=== PATIENT | male | born 1990 | race Caucasian/White ===

== ENCOUNTER 2019-03-08 07:12 | Inpatient (IN) ==
[2019-03-08] MEDS ORDERED: *HR* LORazepam 2 MG/ML VIAL IM ONE (07:19)
[2019-03-08] MEDS ORDERED: 0.9 % Sodium Chloride 1,000 ML IVC ONE ×2 (07:19→15:20)
[2019-03-08] MEDS ORDERED: *HR* LORazepam 2 MG/ML VIAL IVP ONE (07:29)
--- NOTE | 2019-03-08 07:39 | Emergency Department Note ---
Disposition Clinical Impression: Suicidal ideation, Drug ingestion, Hypokalemia, First degree atrioventricular block Disposition: Admitted As Inpatient Condition: Serious Time of Disposition: 14:04 Psych HPI - General Stated Complaint: SI Time Seen by Provider: 03/08/19 07:14 Nursing Notes Reviewed: Yes Vital Signs Reviewed: Yes - History of Present Illness HPI Narrative: 28 yo male presents from home via EMS for evaluation of SI with ingestion. Between the hours of 5am and 6am patient consumed 92 tablets of Unisom as well as 4 cans of beer. Patient's girlfriend called deputies who subsequently called EMS. Per EMS, deputies found 3 unisom bottles. They were empty save for 2 tablets remaining. Patient states he took them all at once. He is not sure which formulation; no bottles brought by EMS. No prior suicide attempts. No daily medications. No allergies. ROS: Limited as patient is agitated, unable to sit still. Has difficulty answering basic questions because of this. Pos: intentional ingestion. "Feels like crap." Neg: VIRGEN, chest pain, palpitations, abdominal pain, hallucinations, blurry vision - Related Data Home Medications Medication Instructions Recorded Confirmed No Known Home Drugs 03/08/19 03/08/19 Allergies Allergy/AdvReac Type Severity Reaction Status Date / Time No Known Allergies Allergy Verified 03/21/18 02:34 All systems ED: reviewed and negative except as stated. Review of Systems: As Per HPI Past Medical History - Past Medical History Medical history: Reports: no medical history Psychiatric history: Reports: no psych history - Social History Smoking Status: Never smoker Smokeless Tobacco Status: No Alcohol use: Reports: rarely Drug use: Reports: none Physical Exam Vital Signs Reviewed General: Patient is alert, oriented, and in acute distress - he is wide-eyed, dry mouth, unable to sit still. Head: atraumatic, normocephalic Eye: normal appearance, PERRL, EOMI, no scleral icterus, no conjunctival injection ENT: mucous membranes dry, normal external ear exam Neck: normal inspection, trachea midline, full ROM Chest: normal inspection, symmetric chest rise Respiratory: Good respiratory effort. Bilateral breath sounds are clear without wheezing, crackles, or rhonchi. Cardiovascular: Tachycardic rate and regular rhythm. No clicks, rubs, gallops, or murmors. Normal heart sounds. Abdomen: Bowel sounds present normoactive. Abdomen is soft, nondistended, and nontender. No guarding or rebound. No organomegaly noted. Musculoskeletal: Spontaneously moving all extremities. Skin: warm, dry, intact. Neuro: GCS 15. No focal neurologic deficits observed. Course Course Narrative: 07:36 Poison control Some formulation with diphenhydramine others with doxalymine, some with acetaminpphen. Patient us unsure which formulation he took. Looking at anticholinergic +/- acetaminphen. Peak effects within 4 hours. Titrate benzos. Watch for HTN, agitation, hallucination. Patient's speech is tangential. He is protecting his airway. He appears to beginning to enter some agitation phase of the overdose; he agrees to not harm the staff and allow us to help him. EKG #1 EKG dated 03/08/2019 and 07:27 interpreted as sinus tachycardia with a rate of 116. For sure AV block with VT 219. QRS 111. QTC 341. Left axis. LVH. Nonspecific ST-T changes. No previous EKG for comparison. EKG #2 EKG dated 03/08/2019 at 10:24 interpreted as sinus tachycardia with a rate of 131. VT 98, QRS 108, QTc 559. No ST-T changes. Agitation was well control within the ED: 2mg Ativan x 3 followed by precedex drip. Patient given 1amp bicarb secondary to QTc 559. Discussed the patient with the admitting hospitalist, Dr. Jo. She agrees to accept the patient to the step-down unit. Vital Signs Temperature 98.7 F 03/08/19 07:15 Pulse Rate 115 03/08/19 07:15 Respiratory Rate 20 03/08/19 07:15 Blood Pressure 145/99 03/08/19 07:15 O2 Sat by Pulse Oximetry 99 03/08/19 07:15 Temperature 98.7 F 03/08/19 07:15 Pulse Rate 140 03/08/19 10:49 Respiratory Rate 18 03/08/19 13:54 Blood Pressure 138/80 03/08/19 13:54 O2 Sat by Pulse Oximetry 98 03/08/19 10:49 Oxygen Delivery Oxygen Delivery Room Air Psych - Lab Data Result diagrams: 03/08/19 07:30 03/08/19 12:14 Lab Results 03/08/19 03/08/19 03/08/19 Range/Units 07:30 07:30 10:22 WBC 8.6 (4.3-11.1) K/mcL RBC 5.31 (4.19-5.50) M/mcL Hgb 16.4 (12.9-16.9) g/dL Hct 46.2 (37.5-50.1) % MCV 87.0 (83.0-100.0) fL MCH 30.9 (28.0-33.3) pg MCHC 35.5 (31.6-35.5) g/dL RDW 12.5 (11.5-14.5) % Plt Count 310 (140-400) K/mcL MPV 10.3 (9.4-12.4) fL Immature Gran % 0.3 (0-4) % Seg Neutrophils % 63.6 % Lymphocytes % 23.0 % Monocytes % 11.9 % Eosinophils % 1.0 % Basophils % 0.2 % Neutrophils # 5.5 (1.6-8.9) K/mcL Lymphocytes # 2.0 (0.6-4.6) K/mcL Monocytes # 1.0 (0.0-1.3) K/mcL Eosinophils # 0.1 (0.0-0.6) K/mcL Basophils # 0.0 (0.0-0.2) K/mcL Sodium 138 (136-145) mEq/L Potassium 2.5 L* (3.5-5.1) mEq/L Chloride 100 (98-107) mEq/L Carbon Dioxide 19 L (23-29) mEq/L BUN 13 (6-20) mg/dL Creatinine 1.02 (0.70-1.30) mg/dL Est GFR ( Amer) > 60 (> 60) Est GFR (Non-Af Amer) > 60 (> 60) BUN/Creatinine Ratio 13 (6-26) Glucose 164 H (70-105) mg/dL Calculated Osmolality 290 (280-300) Calcium 9.9 (8.6-10.3) mg/dL Magnesium 1.5 L (1.6-2.6) mg/dL Total Bilirubin 3.2 H (0.3-1.0) mg/dL Direct Bilirubin 0.4 H (0.0-0.2) mg/dL Indirect Bilirubin 2.8 H (0.0-1.2) mg/dL AST 81 H (13-39) Units/L ALT 165 H (7-52) Units/L Alkaline Phosphatase 91 (34-104) Units/L Serum Total Protein 7.5 (6.4-8.9) g/dL Albumin 4.7 (3.5-5.7) g/dL Globulin 2.8 (2.4-3.5) g/dL Albumin/Globulin Ratio 1.7 (1.1-2.2) Urine Color Dark Yellow (Yellow) Urine Clarity Clear (Clear) Urine pH 5.5 (5.0-8.0) pH Units Ur Specific [place] 1.023 (1.010-1.025) Urine Protein Negative (Neg-Trace) mg/dL Urine Glucose (UA) Normal (Normal) mg/dL Urine Ketones 15 H (Negative) mg/dL Urine Blood Negative (Negative) Urine Nitrite Negative (Negative) Urine Bilirubin Negative (Negative) Urine Urobilinogen Normal (Normal) mg/dL Ur Leukocyte Esterase Trace H (Negative) Urine Microscopic RBC 0-3 (0-3) per hpf Urine Microscopic WBC 0-3 (0-3) per hpf Ur Squamous Epith Cells Many H (None-Few) per lpf Urine Bacteria None Seen (None-Few) per hpf Hyaline Casts None Seen (None-Few) per lpf Salicylates < 2.5 L (15.0-30.0) mg/dL Urine Opiates Screen (Foxmwy=383) ng/mL Acetaminophen < 10 L (10-20) mcg/mL Ur Barbiturates Screen (Mdsuef=997) ng/mL Ur Phencyclidine Scrn (Cutoff=25) ng/mL Ur Amphetamines Screen (Tuuubs=3543) ng/mL U Benzodiazepines Scrn (Kldhko=217) ng/mL Urine Cocaine Screen (Cutoff= 300) ng/mL U Marijuana (THC) Screen (Cutoff = 50) ng/mL Ur Drug Screen Interp Ethyl Alcohol < 10 (Less than 10) mg/dL 03/08/19 03/08/19 Range/Units 10:22 12:14 WBC (4.3-11.1) K/mcL RBC (4.19-5.50) M/mcL Hgb (12.9-16.9) g/dL Hct (37.5-50.1) % MCV (83.0-100.0) fL MCH (28.0-33.3) pg MCHC (31.6-35.5) g/dL RDW (11.5-14.5) % Plt Count (140-400) K/mcL MPV (9.4-12.4) fL Immature Gran % (0-4) % Seg Neutrophils % % Lymphocytes % % Monocytes % % Eosinophils % % Basophils % % Neutrophils # (1.6-8.9) K/mcL Lymphocytes # (0.6-4.6) K/mcL Monocytes # (0.0-1.3) K/mcL Eosinophils # (0.0-0.6) K/mcL Basophils # (0.0-0.2) K/mcL Sodium 140 (136-145) mEq/L Potassium 3.1 L (3.5-5.1) mEq/L Chloride 103 (98-107) mEq/L Carbon Dioxide 22 L (23-29) mEq/L BUN 10 (6-20) mg/dL Creatinine 0.89 (0.70-1.30) mg/dL Est GFR ( Amer) > 60 (> 60) Est GFR (Non-Af Amer) > 60 (> 60) BUN/Creatinine Ratio 11 (6-26) Glucose 84 (70-105) mg/dL Calculated Osmolality 288 (280-300) Calcium 9.4 (8.6-10.3) mg/dL Magnesium 1.9 (1.6-2.6) mg/dL Total Bilirubin (0.3-1.0) mg/dL Direct Bilirubin (0.0-0.2) mg/dL Indirect Bilirubin (0.0-1.2) mg/dL AST (13-39) Units/L ALT (7-52) Units/L Alkaline Phosphatase (34-104) Units/L Serum Total Protein (6.4-8.9) g/dL Albumin (3.5-5.7) g/dL Globulin (2.4-3.5) g/dL Albumin/Globulin Ratio (1.1-2.2) Urine Color (Yellow) Urine Clarity (Clear) Urine pH (5.0-8.0) pH Units Ur Specific [place] (1.010-1.025) Urine Protein (Neg-Trace) mg/dL Urine Glucose (UA) (Normal) mg/dL Urine Ketones (Negative) mg/dL Urine Blood (Negative) Urine Nitrite (Negative) Urine Bilirubin (Negative) Urine Urobilinogen (Normal) mg/dL Ur Leukocyte Esterase (Negative) Urine Microscopic RBC (0-3) per hpf Urine Microscopic WBC (0-3) per hpf Ur Squamous Epith Cells (None-Few) per lpf Urine Bacteria (None-Few) per hpf Hyaline Casts (None-Few) per lpf Salicylates (15.0-30.0) mg/dL Urine Opiates Screen Positive H (Sasodq=702) ng/mL Acetaminophen (10-20) mcg/mL Ur Barbiturates Screen Negative (Hpczkp=833) ng/mL Ur Phencyclidine Scrn Negative (Cutoff=25) ng/mL Ur Amphetamines Screen Negative (Qmfjpa=6679) ng/mL U Benzodiazepines Scrn Negative (Nkgdvq=227) ng/mL Urine Cocaine Screen Negative (Cutoff= 300) ng/mL U Marijuana (THC) Screen Negative (Cutoff = 50) ng/mL Ur Drug Screen Interp See Below Ethyl Alcohol (Less than 10) mg/dL Psychiatric Medical Clearance - Medical Clearance Checklist Medical History: No Social History Section defined Current Vitals: Last Vital Signs Temp 98.7 F 03/08/19 07:15 Pulse 140 03/08/19 10:49 Resp 18 03/08/19 13:54 BP 138/80 03/08/19 13:54 Pulse Ox 98 03/08/19 10:49 Psychiatric Lab Panel: Drug Levels and Toxicity 03/08/19 03/08/19 07:30 10:22 Urine Opiates Screen Positive H Acetaminophen < 10 L Ur Barbiturates Screen Negative Ur Phencyclidine Scrn Negative Ur Amphetamines Screen Negative U Benzodiazepines Scrn Negative Urine Cocaine Screen Negative U Marijuana (THC) Screen Negative Ethyl Alcohol < 10 Abnormal Labs: Abnormal lab results Potassium 3.1 mEq/L (3.5-5.1) L 03/08/19 12:14 Carbon Dioxide 22 mEq/L (23-29) L 03/08/19 12:14 Glucose 164 mg/dL (70-105) H 03/08/19 07:30 Magnesium 1.5 mg/dL (1.6-2.6) L 03/08/19 07:30 3.2 mg/dL (0.3-1.0) H 03/08/19 07:30 0.4 mg/dL (0.0-0.2) H 03/08/19 07:30 2.8 mg/dL (0.0-1.2) H 03/08/19 07:30 AST 81 Units/L (13-39) H 03/08/19 07:30 ALT 165 Units/L (7-52) H 03/08/19 07:30 15 mg/dL (Negative) H 03/08/19 10:22 Ur Leukocyte Esterase Trace (Negative) H 03/08/19 10:22 Ur Squamous Epith Cells Many per lpf (None-Few) H 03/08/19 10:22 Salicylates < 2.5 mg/dL (15.0-30.0) L 03/08/19 07:30 Positive ng/mL (Gyvfrh=993) H 03/08/19 10:22 Acetaminophen < 10 mcg/mL (10-20) L 03/08/19 07:30 Statement of Medical Clearance: I have evaluated the patient, reviewed diagnostic information, and certify that the patient's medical condition is sufficiently stable that transfer to the psychiatric unit does not pose a significant risk of deterioration. Attestation Statement - Attestation Attestation: I, Luca Khanna DO, examined this patient [id number] and my medical decision-making was reviewed with Dr. Jacoby Phelps, Resident Physician. I agree with the documented findings, disposition and treatment plan as described except to the extent set forth below. I personally supervised and was present for the saleem/critical portions of the procedures completed by the resident documented below. Please see my progress notes for details.
[2019-03-08 07:45] LABS: Basophils % 0.2 %; Eosinophils # 0.1 K/mcL (0.0-0.6); Hematocrit 46.2 % (37.5-50.1); Hemoglobin 16.4 g/dL (12.9-16.9); Immature Granulocytes % 0.3 % (0-4); Mean Corpuscular HGB Conc 35.5 g/dL (31.6-35.5); Mean Corpuscular Hemoglobin 30.9 pg (28.0-33.3); Mean Platelet Volume 10.3 fL (9.4-12.4); Monocytes % 11.9 %; Neutrophils # 5.5 K/mcL (1.6-8.9); Platelet Count 310 K/mcL (140-400); Red Blood Count 5.31 M/mcL (4.19-5.50); Red Cell Distribution Width 12.5 % (11.5-14.5); Segmented Neutrophils % 63.6 %
--- NOTE | 2019-03-08 07:56 | Emergency Department Note ---
Disposition Clinical Impression: Suicidal ideation, Drug ingestion, Hypokalemia, First degree atrioventricular block Disposition: Admitted As Inpatient Condition: Serious Time of Disposition: 13:30 General Adult HPI - General Chief complaint: ED Psychiatric Symptoms Stated complaint: SI Time Seen by Provider: 03/08/19 07:14 Source: patient Limitations: no limitations - History of Present Illness Pain Scale: 0 - Related Data Home Medications Medication Instructions Recorded Confirmed No Known Home Drugs 03/08/19 03/08/19 Allergies Allergy/AdvReac Type Severity Reaction Status Date / Time No Known Allergies Allergy Verified 03/21/18 02:34 Past Medical History - Past Medical History Medical history: Reports: no medical history Psychiatric history: Reports: no psych history - Social History Smoking Status: Never smoker Smokeless Tobacco Status: No Alcohol use: Reports: rarely Drug use: Reports: none Physical Exam - General Limitations: no limitations General appearance: alert, anxious Course Vital Signs Temperature 98.7 F 03/08/19 07:15 Pulse Rate 115 03/08/19 07:15 Respiratory Rate 20 03/08/19 07:15 Blood Pressure 145/99 03/08/19 07:15 O2 Sat by Pulse Oximetry 99 03/08/19 07:15 Temperature 98.7 F 03/08/19 07:15 Pulse Rate 140 03/08/19 10:49 Respiratory Rate 18 03/08/19 13:54 Blood Pressure 138/80 03/08/19 13:54 O2 Sat by Pulse Oximetry 98 03/08/19 10:49 Oxygen Delivery Oxygen Delivery Room Air Medical Decision Making - Lab Data Result diagrams: 03/08/19 07:30 03/08/19 12:14 Lab Results 03/08/19 03/08/19 03/08/19 Range/Units 07:30 07:30 10:22 WBC 8.6 (4.3-11.1) K/mcL RBC 5.31 (4.19-5.50) M/mcL Hgb 16.4 (12.9-16.9) g/dL Hct 46.2 (37.5-50.1) % MCV 87.0 (83.0-100.0) fL MCH 30.9 (28.0-33.3) pg MCHC 35.5 (31.6-35.5) g/dL RDW 12.5 (11.5-14.5) % Plt Count 310 (140-400) K/mcL MPV 10.3 (9.4-12.4) fL Immature Gran % 0.3 (0-4) % Seg Neutrophils % 63.6 % Lymphocytes % 23.0 % Monocytes % 11.9 % Eosinophils % 1.0 % Basophils % 0.2 % Neutrophils # 5.5 (1.6-8.9) K/mcL Lymphocytes # 2.0 (0.6-4.6) K/mcL Monocytes # 1.0 (0.0-1.3) K/mcL Eosinophils # 0.1 (0.0-0.6) K/mcL Basophils # 0.0 (0.0-0.2) K/mcL Sodium 138 (136-145) mEq/L Potassium 2.5 L* (3.5-5.1) mEq/L Chloride 100 (98-107) mEq/L Carbon Dioxide 19 L (23-29) mEq/L BUN 13 (6-20) mg/dL Creatinine 1.02 (0.70-1.30) mg/dL Est GFR ( Amer) > 60 (> 60) Est GFR (Non-Af Amer) > 60 (> 60) BUN/Creatinine Ratio 13 (6-26) Glucose 164 H (70-105) mg/dL Calculated Osmolality 290 (280-300) Calcium 9.9 (8.6-10.3) mg/dL Magnesium 1.5 L (1.6-2.6) mg/dL Total Bilirubin 3.2 H (0.3-1.0) mg/dL Direct Bilirubin 0.4 H (0.0-0.2) mg/dL Indirect Bilirubin 2.8 H (0.0-1.2) mg/dL AST 81 H (13-39) Units/L ALT 165 H (7-52) Units/L Alkaline Phosphatase 91 (34-104) Units/L Serum Total Protein 7.5 (6.4-8.9) g/dL Albumin 4.7 (3.5-5.7) g/dL Globulin 2.8 (2.4-3.5) g/dL Albumin/Globulin Ratio 1.7 (1.1-2.2) Urine Color Dark Yellow (Yellow) Urine Clarity Clear (Clear) Urine pH 5.5 (5.0-8.0) pH Units Ur Specific [place] 1.023 (1.010-1.025) Urine Protein Negative (Neg-Trace) mg/dL Urine Glucose (UA) Normal (Normal) mg/dL Urine Ketones 15 H (Negative) mg/dL Urine Blood Negative (Negative) Urine Nitrite Negative (Negative) Urine Bilirubin Negative (Negative) Urine Urobilinogen Normal (Normal) mg/dL Ur Leukocyte Esterase Trace H (Negative) Urine Microscopic RBC 0-3 (0-3) per hpf Urine Microscopic WBC 0-3 (0-3) per hpf Ur Squamous Epith Cells Many H (None-Few) per lpf Urine Bacteria None Seen (None-Few) per hpf Hyaline Casts None Seen (None-Few) per lpf Salicylates < 2.5 L (15.0-30.0) mg/dL Urine Opiates Screen (Jxnsjo=966) ng/mL Acetaminophen < 10 L (10-20) mcg/mL Ur Barbiturates Screen (Xeyara=326) ng/mL Ur Phencyclidine Scrn (Cutoff=25) ng/mL Ur Amphetamines Screen (Buprso=1371) ng/mL U Benzodiazepines Scrn (Izutcq=206) ng/mL Urine Cocaine Screen (Cutoff= 300) ng/mL U Marijuana (THC) Screen (Cutoff = 50) ng/mL Ur Drug Screen Interp Ethyl Alcohol < 10 (Less than 10) mg/dL 03/08/19 03/08/19 Range/Units 10:22 12:14 WBC (4.3-11.1) K/mcL RBC (4.19-5.50) M/mcL Hgb (12.9-16.9) g/dL Hct (37.5-50.1) % MCV (83.0-100.0) fL MCH (28.0-33.3) pg MCHC (31.6-35.5) g/dL RDW (11.5-14.5) % Plt Count (140-400) K/mcL MPV (9.4-12.4) fL Immature Gran % (0-4) % Seg Neutrophils % % Lymphocytes % % Monocytes % % Eosinophils % % Basophils % % Neutrophils # (1.6-8.9) K/mcL Lymphocytes # (0.6-4.6) K/mcL Monocytes # (0.0-1.3) K/mcL Eosinophils # (0.0-0.6) K/mcL Basophils # (0.0-0.2) K/mcL Sodium 140 (136-145) mEq/L Potassium 3.1 L (3.5-5.1) mEq/L Chloride 103 (98-107) mEq/L Carbon Dioxide 22 L (23-29) mEq/L BUN 10 (6-20) mg/dL Creatinine 0.89 (0.70-1.30) mg/dL Est GFR ( Amer) > 60 (> 60) Est GFR (Non-Af Amer) > 60 (> 60) BUN/Creatinine Ratio 11 (6-26) Glucose 84 (70-105) mg/dL Calculated Osmolality 288 (280-300) Calcium 9.4 (8.6-10.3) mg/dL Magnesium 1.9 (1.6-2.6) mg/dL Total Bilirubin (0.3-1.0) mg/dL Direct Bilirubin (0.0-0.2) mg/dL Indirect Bilirubin (0.0-1.2) mg/dL AST (13-39) Units/L ALT (7-52) Units/L Alkaline Phosphatase (34-104) Units/L Serum Total Protein (6.4-8.9) g/dL Albumin (3.5-5.7) g/dL Globulin (2.4-3.5) g/dL Albumin/Globulin Ratio (1.1-2.2) Urine Color (Yellow) Urine Clarity (Clear) Urine pH (5.0-8.0) pH Units Ur Specific [place] (1.010-1.025) Urine Protein (Neg-Trace) mg/dL Urine Glucose (UA) (Normal) mg/dL Urine Ketones (Negative) mg/dL Urine Blood (Negative) Urine Nitrite (Negative) Urine Bilirubin (Negative) Urine Urobilinogen (Normal) mg/dL Ur Leukocyte Esterase (Negative) Urine Microscopic RBC (0-3) per hpf Urine Microscopic WBC (0-3) per hpf Ur Squamous Epith Cells (None-Few) per lpf Urine Bacteria (None-Few) per hpf Hyaline Casts (None-Few) per lpf Salicylates (15.0-30.0) mg/dL Urine Opiates Screen Positive H (Zerefh=116) ng/mL Acetaminophen (10-20) mcg/mL Ur Barbiturates Screen Negative (Xuoopb=978) ng/mL Ur Phencyclidine Scrn Negative (Cutoff=25) ng/mL Ur Amphetamines Screen Negative (Gqbing=6540) ng/mL U Benzodiazepines Scrn Negative (Cmbwnh=166) ng/mL Urine Cocaine Screen Negative (Cutoff= 300) ng/mL U Marijuana (THC) Screen Negative (Cutoff = 50) ng/mL Ur Drug Screen Interp See Below Ethyl Alcohol (Less than 10) mg/dL Critical Care Time Critical Care Time: Yes Total Critical Care Time: 45 Attestation: Critical care performed: Time is exclusive of separately billable procedures. Time includes: direct patient care, patient reassessment, coordination of patient care, interpretation of data (laboratory data, radiology data, and respiratory data), review of patient's medical records, medical consultation and documentation of patient care. Procedures included in critical care time: Procedures excluded from critical care time: Attestation Statement - Attestation Attestation: I, Luca Khanna DO, examined this patient [id number] and my medical decision-making was reviewed with Dr. Jacoby Phelps, Resident Physician. I agree with the documented findings, disposition and treatment plan as described except to the extent set forth below. I personally supervised and was present for the saleem/critical portions of the procedures completed by the resident documented below. Please see my progress notes for details. 28-year-old male presents emergency room after ingesting 3 bottles a Unasom as well as several cans of beer. Patient did this and attempt to kill himself secondary to relationship issues last night where his girlfriend left the house and took their children. Patient denies any other symptoms. He is slightly confused or tangential in conversation on arrival. All the initial complaints are subjected based on the patient's mental status at this time. He does not show any acute signs of hemodynamic instability. He is able to protect his airway appropriately. There is no immediate signs of anticholinergic toxidrome at this point. Patient will be symptomatically evaluated with EKG chest x-ray labs including electrolytes and drugs of abuse. Poison Control Center will be contacted for the recommendations for symptomatic control at this time we will continue to monitor the patient. Estimated 90+ pills of the medication were ingested. Patient will be monitored until clearance is completed and then medical admission will be established and psychiatric consultation. Patient is otherwise stable at this time. Physical exam shows a well-developed appropriate appearing male that does appear to be presenting with slightly tacky skin. His pupils are reactive. He does have difficulty with focusing or we are evaluating. His head is otherwise normal with no signs of trauma. His mucous membranes are slightly dry and tacky. His oropharynx is patent. Lungs are clear heart is regular. Abdomen is soft. Extremities are normal. No signs of nystagmus or clonus at this time. Disposition to be completed once workup has been established. See detailed documentation the physical exam, medical intervention, medical decision-making and disposition the resident physician's note. At this time no critical care applied the patient's treatment course. 1300 Patient is a medical clearance completed. Is required several doses of Ativan will here in the emergency department. Patient was placed on Precedex for the agitation. Repeat EKG shows potential prolongation of the QT is a bicarbonate drip will be started. Patient is otherwise hemodynamically stable. Hospitalist Dr. li reviewed the case. No other recommendations or concerns noted this time. Poison Control Center to been contacted. Disposition will be admission. Patient does have potential critical illness secondary to the large volume ingestion of medications.
[2019-03-08 08:06] LABS: Acetaminophen < 10 mcg/mL (10-20); Alanine Aminotransferase 165 Units/L (7-52); Albumin 4.7 g/dL (3.5-5.7); Albumin/Globulin Ratio 1.7 (1.1-2.2); Alkaline Phosphatase 91 Units/L (34-104); Aspartate Amino Transferase 81 Units/L (13-39); BUN/Creatinine Ratio 13 (6-26); Bilirubin,Direct 0.4 mg/dL (0.0-0.2); Bilirubin,Indirect 2.8 mg/dL (0.0-1.2); Bilirubin,Total 3.2 mg/dL (0.3-1.0); Blood Urea Nitrogen 13 mg/dL (6-20); Calcium 9.9 mg/dL (8.6-10.3); Carbon Dioxide 19 mEq/L (23-29); Chloride 100 mEq/L (98-107); Ethanol < 10 mg/dL (Less than 10); Globulin 2.8 g/dL (2.4-3.5); Glucose 164 mg/dL (70-105); Osmolality,Calculated 290 (280-300); Potassium 2.5 mEq/L (3.5-5.1); Salicylate < 2.5 mg/dL (15.0-30.0); Sodium 138 mEq/L (136-145); Total Protein 7.5 g/dL (6.4-8.9); eGFR For Non-African Americans > 60 (> 60)
[2019-03-08] MEDS ORDERED: Potassium Phosphate 44 MEQ in 0.9 % Sodium Chloride 250 ML IVPB ONE (08:09)
[2019-03-08 08:25] LABS: Magnesium 1.5 mg/dL (1.6-2.6)
[2019-03-08] MEDS ORDERED: *HR* LORazepam 2 MG/ML VIAL IVP PRN ×2 (09:13→15:20)
[2019-03-08] MEDS ORDERED: *HR* LORazepam 2 MG/ML VIAL IVP STA (09:13)
[2019-03-08 10:31] LABS: Bilirubin,Urine Negative (Negative); Blood,Urine Negative (Negative); Clarity,Urine Clear (Clear); Color,Urine Dark Yellow (Yellow); Glucose,Urine (UA) Normal (Normal); Ketones,Urine 15 mg/dL (Negative); Leukocyte Esterase,Urine Trace (Negative); Nitrite,Urine Negative (Negative); PH,Urine 5.5 pH Units (5.0-8.0); Protein,Urine Negative (Neg-Trace); Specific Gravity,Urine 1.023 (1.010-1.025); Urobilinogen,Urine Normal (Normal)
[2019-03-08 10:34] LABS: Bacteria,Urine None Seen per hpf (None-Few); Hyaline Casts,Urine None Seen per lpf (None-Few); RBC,Urine 0-3 per hpf (0-3); Squamous Epithelial Cell,Urine Many per lpf (None-Few); WBC,Urine 0-3 per hpf (0-3)
[2019-03-08 10:43] LABS: Amphetamine Screen,Urine Negative ng/mL (Cutoff=1000); Barbiturate Screen,Urine Negative ng/mL (Cutoff=200); Benzodiazepines Screen,Urine Negative ng/mL (Cutoff=200); Cannabinoid Screen,Urine Negative ng/mL (Cutoff = 50); Cocaine Screen,Urine Negative ng/mL (Cutoff= 300); Opiate Screen,Urine Positive ng/mL (Cutoff=300); Phencyclidine Screen,Urine Negative ng/mL (Cutoff=25)
[2019-03-08] MEDS ORDERED: Dexmedetomidine HCl 400 MCG/100 ML MLS IVC SCH (11:30)
[2019-03-08 12:42] LABS: BUN/Creatinine Ratio 11 (6-26); Blood Urea Nitrogen 10 mg/dL (6-20); Calcium 9.4 mg/dL (8.6-10.3); Carbon Dioxide 22 mEq/L (23-29); Chloride 103 mEq/L (98-107); Glucose 84 mg/dL (70-105); Magnesium 1.9 mg/dL (1.6-2.6); Osmolality,Calculated 288 (280-300); Potassium 3.1 mEq/L (3.5-5.1); Sodium 140 mEq/L (136-145); eGFR For Non-African Americans > 60 (> 60)
[2019-03-08] MEDS ORDERED: Sodium Bicarbonate 50 MEQ/50 ML VIAL IVP ONE (14:02)
--- NOTE | 2019-03-08 14:52 | Internal Med History&Physical ---
<Mavis Eugene - Last Filed: 03/08/19 16:36> Date of Encounter: 03/08/19 Time of Encounter: 14:51 Internal Medicine - H&P: HPI Chief complaint: SI and toxic ingestion Admitted From: Emergency Dept Plans for Post Hospital Care: Transfer Psych Facility (1A) History of present illness: Mr. Grier is a 28 year old male with no known PMH who presents by EMS for evaluation of suicidal ideation with toxic ingestion of OTC anti-histamine and alcohol following recent stressor in which his girlfriend left the home with their children. Much of the history is gathered from chart review, the patient is an unreliable historian at this time d/t toxic ingestion. According to ED notes, patient ingested 92 tablets of Unisom and drank 4 cans of beer early this morning. On arrival to the ED, Poison Control was contacted and the patient was found to have temp 98.3 F, HR 115, RR 20, and SBP 145-160 / DBP 80-110. Laboratory evaluation shows K 2.5, bicarb 19, Mg 1.5, opiate positive UDS, with leukocytes and ketones on UA. Salicylate, APAP, and EtOH levels were not elevated on UDS. Initial EKG reported as sinus tachycardia (HR 115) with 1st degree AV block (AK 219) and QTc 341. Repeat EKG demonstrated sinus tachycardia (HR 131), AK 98, and QTc 559. Nonspecific ST-T changes seen on both EKGs. Patient treated with 40 mEq K for hypokalemia and 1 amp bicarb for prolonged QTc. During his ED course, he was reported to be getting more agitated and received a few doses of Ativan before being started on a Precedex drip. He was admitted to the hospitalist service for further evaluation and monitoring of his toxic ingestion. When I entered the room, patient was in no acute distress. He appeared to be slightly confused and his speech was tangential. States he intended to take the Unisom, but was taking it because he couldn't sleep. Denies current suicidal or homicidal ideation. Unclear whether or not he'd experienced suicidal ideation prior to this episode. He is oriented to place and time, but was unable correctly name the current air crew officer after having answered Teena Case and Neda Bee. He denies fevers, chest pain, heart palpitations, heart racing, difficulty breathing, blurred vision, nausea, difficulty urinating, or tactile/auditory/visual hallucinations at time of my evaluation. Past Med Surg Social Fam HX - Past Medical History Medical history: no medical history Psychiatric history: no psych history - Social History Smoking Status: Never smoker Smokeless Tobacco Status: No Alcohol use: rarely Drug use: none Internal Medicine - H&P: Meds No Known Home Drugs 03/08/19 [History] Allergy/AdvReac Type Severity Reaction Status Date / Time No Known Allergies Allergy Verified 03/21/18 02:34 ROS unobtainable: due to mental status All Systems PM: A 10-system review of systems was performed and is negative for pertinent findi ngs except as documented above in the HPI. - Constitutional Vitals: Temp Pulse Resp BP Pulse Ox 98.7 F 140 18 138/80 98 03/08/19 07:15 03/08/19 10:49 03/08/19 13:54 03/08/19 13:54 03/08/19 10:49 Exam: General: No acute distress HEENT: normocephalic, pupils dilated, dry oral mucous membranes Neck: Supple, no lymphadenopathy Cardio: tachycardic, regular rhythm, no murmurs, +S1/S2, no peripheral edema Pulm: CTAB, no wheezing, rhonchi, rales. Normal respiratory effort. Abdomen: soft, nontender, active bowel sounds, non-distended Extremities: No LE edema, no cyanosis, no clubbing Back: normal appearance on inspection Neuro: oriented to place and time, no focal deficits, CN II-XII grossly intact, moves all 4 extremities spontaneously MSK: Strength 5/5 throughout, no visible deformities Skin: clean, dry, intact, no visible rashes Psych: poor attention, tangential, speech fluent and not pressured, poor insight, somewhat anxious and restless appearing Internal Med - H&P Results - Labs CBC & Chem 7: 03/08/19 07:30 03/08/19 12:14 Labs: Short CBC 03/08/19 Range/Units 07:30 WBC 8.6 (4.3-11.1) K/mcL Hgb 16.4 (12.9-16.9) g/dL Hct 46.2 (37.5-50.1) % Plt Count 310 (140-400) K/mcL Neutrophils # 5.5 (1.6-8.9) K/mcL BMP 03/08/19 03/08/19 07:30 12:14 Sodium 138 140 Potassium 2.5 L* 3.1 L Chloride 100 103 Carbon Dioxide 19 L 22 L BUN 13 10 Creatinine 1.02 0.89 Glucose 164 H 84 Calcium 9.9 9.4 Liver Function 03/08/19 Range/Units 07:30 Total Bilirubin 3.2 H (0.3-1.0) mg/dL Direct Bilirubin 0.4 H (0.0-0.2) mg/dL AST 81 H (13-39) Units/L ALT 165 H (7-52) Units/L Alkaline Phosphatase 91 (34-104) Units/L Albumin 4.7 (3.5-5.7) g/dL Urine 03/08/19 Range/Units 10:22 Urine Color Dark Yellow (Yellow) Urine Clarity Clear (Clear) Urine pH 5.5 (5.0-8.0) pH Units Ur Specific [place] 1.023 (1.010-1.025) Urine Protein Negative (Neg-Trace) mg/dL Urine Glucose (UA) Normal (Normal) mg/dL - Summary of Assessment and Plan Summary of Assessment and Plan: Mr. Orozco is a 28 M without known PMH who presents for suicidal ideation with toxic ingestion of Unisom and alcohol following recent stressor. Showing multiple s/sx of anticholinergic toxicity including tachycardia, prolonged QTc, hyperthermia, psychomotor agitation. Hypokalemia 2.9, 1st degree AV block, QTc prolongation and urine tox positive for opiates. A/P Anticholinergic toxic ingestion: Showing multiple toxidromal s/sx of erythema, mydriasis, urinary retention, anhidrotic hyperthermia, agitation, tachycardia, e tc. Doxylamine associated with nontraumatic rhabdomyolysis. - Check CK now and in AM - Cardiac monitoring - Bladder scan if pt hasn't voided by midnight, straight cath if required for urinary retention Hypokalemia: Potassium 2.9 on admission. Improved to 3.1 after potassium 40 mEq PO. - Replete with additional 40 mEq PO, recheck with AM labs - Check Mg level QTc prolongation: Noted on EKG #2, QTc 559. Returned wnl after 1 amp bicarb in ED. - Repeat EKG if clinical status declines - Avoid QTc prolonging meds First degree AV block: Resolved. Seen on initial EKG with AK 219, subsequent EKGs show AK wnl. Suspected intentional overdose: Recent stressor, occurred night prior to ingestion. EMS reportedly found 3 bottles of Unisom with only 2 tablets remaining. Urine tox opiate positive; negative for APAP, EtOH, Salicylates. - Sitter ordered - Psychiatry consultation, 1A transfer once medically stable - Time Spent With Patient Total time spent is greater than 50% in coordination of care (as documented) at patient's floor/unit and/or counseling patient: <Wiliam Medina - Last Filed: 03/09/19 07:20> Date of Encounter: 03/08/19 Internal Med - H&P Results - Labs CBC & Chem 7: 03/09/19 05:10 03/09/19 05:10 Labs: Short CBC 03/08/19 03/09/19 Range/Units 07:30 05:10 WBC 8.6 9.9 (4.3-11.1) K/mcL Hgb 16.4 15.3 (12.9-16.9) g/dL Hct 46.2 44.0 (37.5-50.1) % Plt Count 310 249 (140-400) K/mcL Neutrophils # 5.5 (1.6-8.9) K/mcL BMP 03/08/19 03/08/19 03/08/19 07:30 12:14 19:02 Sodium 138 140 Potassium 2.5 L* 3.1 L 3.4 L Chloride 100 103 Carbon Dioxide 19 L 22 L BUN 13 10 Creatinine 1.02 0.89 Glucose 164 H 84 Calcium 9.9 9.4 03/09/19 05:10 Sodium 139 Potassium 3.7 Chloride 104 Carbon Dioxide 26 BUN 7 Creatinine 0.81 Glucose 75 Calcium 9.8 Liver Function 03/08/19 03/09/19 Range/Units 07:30 05:10 Total Bilirubin 3.2 H 2.4 H (0.3-1.0) mg/dL Direct Bilirubin 0.4 H 0.4 H (0.0-0.2) mg/dL AST 81 H 193 H (13-39) Units/L ALT 165 H 140 H (7-52) Units/L Alkaline Phosphatase 91 79 (34-104) Units/L Albumin 4.7 4.4 (3.5-5.7) g/dL Urine 03/08/19 Range/Units 10:22 Urine Color Dark Yellow (Yellow) Urine Clarity Clear (Clear) Urine pH 5.5 (5.0-8.0) pH Units Ur Specific [place] 1.023 (1.010-1.025) Urine Protein Negative (Neg-Trace) mg/dL Urine Glucose (UA) Normal (Normal) mg/dL - Attending Attestation Patient seen and examined independently on 03/08/2019. Objective data has been reviewed including labs and ECGs. I agree with the plan of care as documented above by the resident, with the following comments: Ernesto Grier is a 28 M who presents after intentional ingestion of large quantity of the antihistamine doxylamine and has features of anticholinergic toxidrome as noted above including fever, tachycardia, confusion, dry skin and MM, mydriasis. Labs showing K 2.5. ECG w 1' AVB and QTc 560. Pt given fluid boluses, potassium replacement, and 1 amp bicarb w improvement in symptoms, vitals, and repeat BMP, and ECG abn. Pt will be admitted for monitoring of cardiac rhythm and mental status, continued hydration, and psych evaluation when improved.
[2019-03-08] MEDS ORDERED: Naloxone 0.4 MG/ML INJ IVP PRN ×2 (15:02)
[2019-03-08 16:50] LABS: Creatine Kinase 735 Units/L (30-223)
[2019-03-09 05:53] LABS: Hemoglobin 15.3 g/dL (12.9-16.9); Mean Corpuscular HGB Conc 34.8 g/dL (31.6-35.5); Mean Corpuscular Hemoglobin 30.9 pg (28.0-33.3); Mean Corpuscular Volume 88.9 fL (83.0-100.0); Platelet Count 249 K/mcL (140-400); Red Blood Count 4.95 M/mcL (4.19-5.50)
[2019-03-09 06:14] LABS: Albumin 4.4 g/dL (3.5-5.7); Albumin/Globulin Ratio 1.8 (1.1-2.2); Bilirubin,Direct 0.4 mg/dL (0.0-0.2); Bilirubin,Total 2.4 mg/dL (0.3-1.0); Globulin 2.5 g/dL (2.4-3.5); Total Protein 6.9 g/dL (6.4-8.9)
[2019-03-09 06:15] LABS: BUN/Creatinine Ratio 9 (6-26); Blood Urea Nitrogen 7 mg/dL (6-20); Calcium 9.8 mg/dL (8.6-10.3); Carbon Dioxide 26 mEq/L (23-29); Chloride 104 mEq/L (98-107); Glucose 75 mg/dL (70-105); Osmolality,Calculated 285 (280-300); Potassium 3.7 mEq/L (3.5-5.1); Sodium 139 mEq/L (136-145); eGFR For Non-African Americans > 60 (> 60)
--- NOTE | 2019-03-09 07:57 | Internal Med Progress Note ---
<Mavis Eugene - Last Filed: 03/09/19 18:15> Hospitalist Progress Note - Encounter Date of Encounter: 03/09/19 Time of Encounter: 07:55 - Exam Vitals: Temp Pulse Resp BP Pulse Ox 98.6 F 81 16 132/96 96 03/09/19 07:00 03/09/19 07:00 03/09/19 07:00 03/09/19 07:00 03/09/19 07:00 Exam: General: No acute distress, non-flushed appearance HEENT: normocephalic, PERRL, pupils don't appear mydriatic, dry oral mucous membranes Neck: Supple, no lymphadenopathy Cardio: RRR, no murmurs, +S1/S2, no peripheral edema Pulm: CTAB; no wheezing, rhonchi, rales. Normal respiratory effort. Abdomen: soft, nontender, active bowel sounds, non-distended Extremities: No LE edema, no cyanosis, no clubbing Neuro: AAO x 3, no focal deficits, CN II-XII grossly intact, moves all 4 extremities spontaneously, speech clear MSK: Strength 5/5 throughout, no visible deformities Skin: clean, dry, intact, no visible rashes Psych: speech clear, answers questions appropriately, doesn't appear anxious or agitated - Summary of Assessment and Plan Summary of Assessment and Plan: Mr. Orozco is a 28 M without known PMH who presents for suicidal ideation with toxic ingestion of Unisom and alcohol following recent stressor. Showing multiple s/sx of anticholinergic toxicity including tachycardia, prolonged QTc, hyperthermia, psychomotor agitation. Hypokalemia 2.9, 1st degree AV block, QTc prolongation and urine tox positive for opiates. A/P Anticholinergic toxic ingestion: Presented with multiple toxidromal s/sx of erythema, mydriasis, urinary retention, anhidrotic hyperthermia, agitation, tachycardia, etc. Required several doses lorazepam and precedex gtt for agitation in ED, these meds subsequently discontinued. Toxidrome appears to have resolved. RN reports patient has been urinating in toilet without difficulty, requested pt use urinal for measurement - Cardiac monitoring - Strict monitor I/O's Elevated creatinine kinase: CK 735 on admission, increased today. Secondary to toxic ingestion of doxylamine which is associated with nontraumatic rhabdomyolysis. Creatinine stable and wnl. - Start IV NS 200mL/hr - Recheck CK in morning and monitor renal function QTc prolongation: Noted on EKG #2, QTc 559. Returned wnl after 1 amp bicarb in ED. - Repeat EKG if clinical status declines - Avoid QTc prolonging meds Hypokalemia: Resolved after repletion. Potassium 2.9 on admission. First degree AV block: Resolved. Seen on initial EKG with DE 219, subsequent EKGs show DE wnl. Suspected intentional overdose: Recent stressor, occurred night prior to ingestion. EMS reportedly found 3 bottles of Unisom with only 2 tablets remaining. Urine tox opiate positive; negative for APAP, EtOH, Salicylates. Psychiatry recs inpt mental health assessment and treatment - Sitter ordered Prophylaxis: Heparin subQ Diet: Regular, no caffeine Dispo: transfer to once medically stable - Time Spent with Patient Total time spent is greater than 50% in coordination of care (as documented) at patient's floor/unit and/or counseling patient: Internal Medicine: Result - Labs CBC & Chem 7: 03/09/19 05:10 03/09/19 05:10 Labs: Short CBC 03/09/19 Range/Units 05:10 WBC 9.9 (4.3-11.1) K/mcL Hgb 15.3 (12.9-16.9) g/dL Hct 44.0 (37.5-50.1) % Plt Count 249 (140-400) K/mcL BMP 03/08/19 03/08/19 03/08/19 07:30 12:14 19:02 Sodium 138 140 Potassium 2.5 L* 3.1 L 3.4 L Chloride 100 103 Carbon Dioxide 19 L 22 L BUN 13 10 Creatinine 1.02 0.89 Glucose 164 H 84 Calcium 9.9 9.4 03/09/19 05:10 Sodium 139 Potassium 3.7 Chloride 104 Carbon Dioxide 26 BUN 7 Creatinine 0.81 Glucose 75 Calcium 9.8 Liver Function 03/08/19 03/09/19 Range/Units 07:30 05:10 Total Bilirubin 3.2 H 2.4 H (0.3-1.0) mg/dL Direct Bilirubin 0.4 H 0.4 H (0.0-0.2) mg/dL AST 81 H 193 H (13-39) Units/L ALT 165 H 140 H (7-52) Units/L Alkaline Phosphatase 91 79 (34-104) Units/L Albumin 4.7 4.4 (3.5-5.7) g/dL Urine 03/08/19 Range/Units 10:22 Urine Color Dark Yellow (Yellow) Urine Clarity Clear (Clear) Urine pH 5.5 (5.0-8.0) pH Units Ur Specific [place] 1.023 (1.010-1.025) Urine Protein Negative (Neg-Trace) mg/dL Urine Glucose (UA) Normal (Normal) mg/dL Consult Discharge Plan - Plan Referrals: NONE,PCP [Primary Care Provider] - <Wiliam Medina - Last Filed: 03/09/19 18:33> Hospitalist Progress Note - Encounter Date of Encounter: 03/09/19 Internal Medicine: Result - Labs CBC & Chem 7: 03/09/19 05:10 03/09/19 05:10 Labs: Short CBC 03/09/19 Range/Units 05:10 WBC 9.9 (4.3-11.1) K/mcL Hgb 15.3 (12.9-16.9) g/dL Hct 44.0 (37.5-50.1) % Plt Count 249 (140-400) K/mcL BMP 03/08/19 03/08/19 03/09/19 12:14 19:02 05:10 Sodium 140 139 Potassium 3.1 L 3.4 L 3.7 Chloride 103 104 Carbon Dioxide 22 L 26 BUN 10 7 Creatinine 0.89 0.81 Glucose 84 75 Calcium 9.4 9.8 Liver Function 03/09/19 Range/Units 05:10 Total Bilirubin 2.4 H (0.3-1.0) mg/dL Direct Bilirubin 0.4 H (0.0-0.2) mg/dL AST 193 H (13-39) Units/L ALT 140 H (7-52) Units/L Alkaline Phosphatase 79 (34-104) Units/L Albumin 4.4 (3.5-5.7) g/dL - Attending Attestation Patient seen and examined independently, including review of objective data including labs. I agree with plan of care as documented above by the resident with the following comments: 28 M much improved today after high dose doxylamine ingestion causing anticholinergic toxidrome, however labs do suggest nontraumatic rhabdo and thus we will begin MIVF NS@200 and trend CK levels. Suspect will be medically cleared tomorrow and will consult psych today.
[2019-03-09] MEDS: 0.9 % Sodium Chloride 1,000 ML IVC SCH ×3 (10:11→21:24)
--- NOTE | 2019-03-09 10:15 | Electrocardiograph Report ---
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
--- NOTE | 2019-03-09 10:21 | Electrocardiograph Report ---
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
--- NOTE | 2019-03-09 12:52 | Consult Note ---
Date of Encounter: 03/09/19 Time of Encounter: 12:50 Assessment & Recommendation (1) Major depress dis, severe Current visit: Yes Status: Acute Assessment & Recommendation: Client denies ongoing SI but given seriousness of attempt would recommend inpatient mental health assessment and treatment prior to discharge. Recommend transfer once medically stable. History of Present Illness Requesting Physician: Lenora Jo Reason for consult: overdose History of present illness: Mr. Grier is a 28 year old male who attempted suicide via overdose. Client states his recently left him and she moved out with the kids. Client reports a history of depression but no history of treatment and no history of acting on suicidal thoughts. Denies ongoing SI and states he is relieved he was not successful. However, he is currently living alone with no outpatient linkage/supports. Client states he is normally physically healthy. Denies any AOD use. CC: Lenora Jo Past Med Surg Social Fam HX - Past Medical History Medical history: no medical history - Past Psychiatric History Psychiatric history: Reports: no psych history Family psychiatric history: Yes Family Psychiatric History Details: depression Family History of Suicide: None - Social History Smoking Status: Never smoker Smokeless Tobacco Status: No Alcohol use: rarely Drug use: none Medications & Allergies No Known Home Drugs 03/08/19 [History] Allergy/AdvReac Type Severity Reaction Status Date / Time No Known Allergies Allergy Verified 03/09/19 10:35 Review of Systems Constitutional: Denies: fever, chills, weakness, weight change Eyes: Denies: eye pain, vision change Ears, Nose, Throat: Denies: ear pain, throat pain, dental pain, hearing loss, congestion Cardiovascular: Denies: chest pain, palpitations, dyspnea on exertion Respiratory: Denies: cough, dyspnea, wheezes Gastrointestinal: Denies: abdominal pain, nausea, vomiting, diarrhea, constipation Genitourinary male: Denies: urgency, dysuria, frequency, genital lesions Musculoskeletal: Denies: joint swelling, joint pain Integumentary: Denies: rash, lesions, pruritus Neurological: Denies: headache, weakness, numbness, memory loss Endocrine: Denies: fatigue, heat or cold intolerance Hematologic/Lymphatic: Denies: easy bruising, lymphadenopathy Allergic/Immunologic: Denies: urticaria, itchy eyes Psychiatry Exam - Constitutional Vitals: Temp Pulse Resp BP Pulse Ox 97.7 F 85 18 130/81 97 03/09/19 11:19 03/09/19 11:19 03/09/19 11:19 03/09/19 11:19 03/09/19 11:19 General appearance: age & developmentally appropriate - Musculoskeletal Gait: other Station: relaxed Strength & Tone: normal for patient - Psychiatric Patient Orientation: Yes Person, Yes Time, Yes Place Level of alertness: Alert Behavior: calm, cooperative Psychomotor activity: Normal Eye Contact: Maintains Eye Contact Mood Description: Depressed Affect description: congruent with mood Speech Volume: Normal Speech pattern: normal rate, normal rhythm, normal tone, fluent, spontaneous Language & Vocabulary: consistent with education Thought Process: Linear Thought Content: No Suicidal ideation, No Homicidal ideation, No Overt delusions Perceptual Disturbances: No Auditory hallucinations, No Visual hallucinations Attention Span Ability: Capable of Focused Attention Memory Description: Grossly Intact Patient Reliability: Reliable Historian Fund of knowledge: Yes abstraction ability, Yes aware of current events Intelligence Estimate: Average Judgment: Limited Insight: Partial Results - Labs Labs: Laboratory Last Values WBC 9.9 K/mcL (4.3-11.1) 03/09/19 05:10 RBC 4.95 M/mcL (4.19-5.50) 03/09/19 05:10 Hgb 15.3 g/dL (12.9-16.9) 03/09/19 05:10 Hct 44.0 % (37.5-50.1) 03/09/19 05:10 MCV 88.9 fL (83.0-100.0) 03/09/19 05:10 MCH 30.9 pg (28.0-33.3) 03/09/19 05:10 MCHC 34.8 g/dL (31.6-35.5) 03/09/19 05:10 RDW 13.0 % (11.5-14.5) 03/09/19 05:10 Plt Count 249 K/mcL (140-400) 03/09/19 05:10 MPV 10.0 fL (9.4-12.4) 03/09/19 05:10 Immature Gran % 0.3 % (0-4) 03/08/19 07:30 Seg Neutrophils % 63.6 % 03/08/19 07:30 23.0 % 03/08/19 07:30 11.9 % 03/08/19 07:30 1.0 % 03/08/19 07:30 0.2 % 03/08/19 07:30 5.5 K/mcL (1.6-8.9) 03/08/19 07:30 2.0 K/mcL (0.6-4.6) 03/08/19 07:30 1.0 K/mcL (0.0-1.3) 03/08/19 07:30 0.1 K/mcL (0.0-0.6) 03/08/19 07:30 0.0 K/mcL (0.0-0.2) 03/08/19 07:30 Sodium 139 mEq/L (136-145) 03/09/19 05:10 Potassium 3.7 mEq/L (3.5-5.1) 03/09/19 05:10 Chloride 104 mEq/L (98-107) 03/09/19 05:10 Carbon Dioxide 26 mEq/L (23-29) 03/09/19 05:10 BUN 7 mg/dL (6-20) 03/09/19 05:10 0.81 mg/dL (0.70-1.30) 03/09/19 05:10 Est GFR ( Amer) > 60 (> 60) 03/09/19 05:10 Est GFR (Non-Af Amer) > 60 (> 60) 03/09/19 05:10 9 (6-26) 03/09/19 05:10 Glucose 75 mg/dL (70-105) 03/09/19 05:10 285 (280-300) 03/09/19 05:10 Calcium 9.8 mg/dL (8.6-10.3) 03/09/19 05:10 Magnesium 2.0 mg/dL (1.6-2.6) 03/09/19 05:10 2.4 mg/dL (0.3-1.0) H 03/09/19 05:10 0.4 mg/dL (0.0-0.2) H 03/09/19 05:10 2.0 mg/dL (0.0-1.2) H 03/09/19 05:10 AST 193 Units/L (13-39) H 03/09/19 05:10 ALT 140 Units/L (7-52) H 03/09/19 05:10 79 Units/L (34-104) 03/09/19 05:10 64307 Units/L (30-223) H 03/09/19 05:10 6.9 g/dL (6.4-8.9) 03/09/19 05:10 4.4 g/dL (3.5-5.7) 03/09/19 05:10 2.5 g/dL (2.4-3.5) 03/09/19 05:10 1.8 (1.1-2.2) 03/09/19 05:10 Dark Yellow (Yellow) 03/08/19 10:22 Clear (Clear) 03/08/19 10:22 5.5 pH Units (5.0-8.0) 03/08/19 10:22 Ur Specific [place] 1.023 (1.010-1.025) 03/08/19 10:22 Negative mg/dL (Neg-Trace) 03/08/19 10:22 Normal mg/dL (Normal) 03/08/19 10:22 15 mg/dL (Negative) H 03/08/19 10:22 Negative (Negative) 03/08/19 10:22 Negative (Negative) 03/08/19 10:22 Negative (Negative) 03/08/19 10:22 Normal mg/dL (Normal) 03/08/19 10:22 Ur Leukocyte Esterase Trace (Negative) H 03/08/19 10:22 0-3 per hpf (0-3) 03/08/19 10:22 0-3 per hpf (0-3) 03/08/19 10:22 Ur Squamous Epith Cells Many per lpf (None-Few) H 03/08/19 10:22 None Seen per hpf (None-Few) 03/08/19 10:22 Hyaline Casts None Seen per lpf (None-Few) 03/08/19 10:22 Salicylates < 2.5 mg/dL (15.0-30.0) L 03/08/19 07:30 Positive ng/mL (Ycimba=332) H 03/08/19 10:22 Acetaminophen < 10 mcg/mL (10-20) L 03/08/19 07:30 Ur Barbiturates Screen Negative ng/mL (Bhcjny=237) 03/08/19 10:22 Ur Phencyclidine Scrn Negative ng/mL (Cutoff=25) 03/08/19 10:22 Ur Amphetamines Screen Negative ng/mL (Gcbdyt=5479) 03/08/19 10:22 U Benzodiazepines Scrn Negative ng/mL (Osffml=162) 03/08/19 10:22 Negative ng/mL (Cutoff= 300) 03/08/19 10:22 U Marijuana (THC) Screen Negative ng/mL (Cutoff = 50) 03/08/19 10:22 Ur Drug Screen Interp See Below 03/08/19 10:22 Ethyl Alcohol < 10 mg/dL (Less than 10) 03/08/19 07:30 Consult Discharge Plan - Plan Referrals: NONE,PCP [Primary Care Provider] -
[2019-03-09] MEDS: *HR* Heparin 5,000 UNIT/ML VIAL SQ SCH (18:08)
[2019-03-10] MEDS: 0.9 % Sodium Chloride 1,000 ML IVC SCH (02:39)
[2019-03-10] MEDS: *HR* Heparin 5,000 UNIT/ML VIAL SQ SCH (06:02)
[2019-03-10 07:26] LABS: BUN/Creatinine Ratio 13 (6-26); Blood Urea Nitrogen 9 mg/dL (6-20); Calcium 9.2 mg/dL (8.6-10.3); Carbon Dioxide 24 mEq/L (23-29); Chloride 103 mEq/L (98-107); Glucose 75 mg/dL (70-105); Osmolality,Calculated 279 (280-300); Sodium 136 mEq/L (136-145); eGFR For Non-African Americans > 60 (> 60)
--- NOTE | 2019-03-10 08:26 | Internal Med Progress Note ---
Hospitalist Progress Note - Encounter Date of Encounter: 03/10/19 Time of Encounter: 08:41 - Exam Vitals: Temp Pulse Resp BP Pulse Ox 97.8 F 62 12 123/77 97 03/10/19 04:44 03/10/19 04:44 03/10/19 04:44 03/10/19 04:44 03/10/19 04:44 - Summary of Assessment and Plan Summary of Assessment and Plan: Mr. Grier is a 28 M without known PMH who presents for suicidal ideation with toxic ingestion of Unisom and alcohol following recent stressor. Showing multiple s/sx of anticholinergic toxicity including tachycardia, prolonged QTc, hyperthermia, psychomotor agitation. Hypokalemia 2.9, 1st degree AV block, QTc prolongation and urine tox positive for opiates. A/P Anticholinergic toxic ingestion: Presented with multiple toxidromal s/sx of erythema, mydriasis, urinary retention, anhidrotic hyperthermia, agitation, tachycardia, etc. Required several doses lorazepam and precedex gtt for livia tation in ED, these meds subsequently discontinued. Toxidrome appears to have resolved; has been afebrile, vital signs stable and without tachycardia. Elevated creatinine kinase: CK 735 on admission, increased today. Secondary to toxic ingestion of doxylamine which is associated with nontraumatic r habdomyolysis. Creatinine stable and wnl after IV fluids. Appropriate UOP over last 24 hours (0.8mL/kg/hr). QTc prolongation: Noted on EKG #2, QTc 559. Returned wnl after 1 amp bicarb in ED. Hypokalemia: Resolved after repletion. Potassium 2.9 on admission. First degree AV block: Resolved. Seen on initial EKG with WI 219, subsequent EKGs show WI wnl. Suspected intentional overdose: Recent stressor, occurred night prior to ingestion. EMS reportedly found 3 bottles of Unisom with only 2 tablets remaining. Urine tox opiate positive; negative for APAP, EtOH, Salicylates. Psychiatry recs inpt mental health assessment and treatment - Sitter while on medical floor Prophylaxis: Heparin subQ Diet: Regular Dispo: transfer to once medically stable - Time Spent with Patient Total time spent is greater than 50% in coordination of care (as documented) at patient's floor/unit and/or counseling patient: Plan of Care Discussed with: patient Internal Medicine: Result - Labs CBC & Chem 7: 03/09/19 05:10 03/10/19 06:00 Labs: BMP 03/10/19 06:00 Sodium 136 Potassium 4.0 Chloride 103 Carbon Dioxide 24 BUN 9 Creatinine 0.68 L Glucose 75 Calcium 9.2 Consult Discharge Plan - Plan Referrals: NONE,PCP [Primary Care Provider] -
[2019-03-10] MEDS ORDERED: 0.9 % Sodium Chloride 1,000 ML IVC SCH (08:45)
[2019-03-10 10:36] LABS: Creatine Kinase 4145 Units/L (30-223)
[2019-03-10 10:42] VITALS: BP 116/76
--- NOTE | 2019-03-10 11:14 | Electrocardiograph Report ---
[facility] Test Date: 2019-03-08 Pat Name: Ernesto Grier Department: EXAM3 Room: 2A13 Gender: M Hospital Nurse: : 1990 Requested By: Jacoby Phelps Order Number: [id number] Reading MD: Mil Biggs Measurements Intervals Bryan Rate: 116 P: 40 OK: 219 QRS: -45 QRSD: 111 T: 135 QT: 245 QTc: 341 Interpretive Statements Sinus tachycardia Prolonged OK interval Biatrial enlargement LVH with IVCD, LAD and secondary repol abnrm Electronically Signed On 03-10-2019 11:12:40 EDT by Mil Biggs
--- NOTE | 2019-03-10 11:37 | Discharge Summary ---
<Wiliam Medina - Last Filed: 03/10/19 15:50> Date of Encounter: 03/10/19 Hospital course: Patient seen and examined. I agree with the discharge plan as documented by the resident. In summary, Ernesto Grier is a 28 M who presented after intentional ingestion of large quantity OTC antihistamine doxylamine which resulted in textbook anticholingergic toxidrome as well as nontraumatic rhabdomyolysis. ECG initially w QTc prolongation which improved w bicarb. Toxidrome improved w fluid boluses and time. Rhabdo improving at time of discharge and pt can focus on PO hydration, d/c MIVF, and d/c to inpatient psych. 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: 25 minutes Wiliam Medina MD - Discharge Medications Prescriptions: Continued No Known Home Drugs 1 each .ROUTE AD each Home Medications: No Known Home Drugs 03/08/19 [History] Allergies/Adverse Reactions: Allergy/AdvReac Type Severity Reaction Status Date / Time No Known Allergies Allergy Verified 03/09/19 10:35 Date of admission: 03/08/19 13:21 Primary care physician: PCP NONE Consults: 03/08/19 15:04 Consult to Diamond Expert [CONS] Routine Reason for SW Consult: discharge planning, outpatient psych/counseling resources 03/08/19 20:50 Consult to Psychiatry [CONS] Routine Consulting Provider: Psychiatry Jayna Reason consult: Escalante slip on chart Escalante Slip initiated date and time: 03/08/20192049 - Patient Status Disposition: Transfer Psychiatric Hosp Condition: Fair - Discharge Instructions Follow Up With: NONE,PCP [Primary Care Provider] - <Mavis Eugene - Last Filed: 03/10/19 16:58> Orders not resulted at time of discharge: Pending orders 03/11/19 04:00 BMP [Basic Metabolic Panel] AM 0400 Date of Encounter: 03/10/19 Time of Encounter: 11:35 - Discharge Diagnosis (1) Suicidal ideation Priority: Primary Status: Acute (2) Drug ingestion Priority: Secondary Status: Acute (3) Hypokalemia Priority: Secondary Status: Resolved (4) First degree atrioventricular block Priority: Secondary Status: Acute (5) Major depress dis, severe Priority: Secondary Status: Acute Hospital course: Mr. Grier is a 28 M without known PMH who presents for suicidal ideation with toxic ingestion of Unisom and alcohol following recent stressor. Showing multiple s/sx of anticholinergic toxicity including tachycardia, prolonged QTc, hyperthermia, psychomotor agitation. Hypokalemia 2.9, 1st degree AV block, QTc prolongation and urine tox positive for opiates. Toxidromal symptoms improved by time of discharge. QTc prolongation resolved after receiving bicarb. Hypokalemia resolved with supplementation of potassium. Nontraumatic rhabdomyolysis secondary to toxic ingestion improved, CK showed downward trend with IV fluids. Evaluated by psychiatry who recommended inpatient mental health evaluation and treatment, he will be discharged to at [facility]. He is medically stable for discharge today, he is fully alert and oriented. Discharge discussed with: patient - Time Spent with Patient Total time spent providing and/or coordinating discharge services: Time spent: Less than 30 minutes Date of admission: 03/08/19 13:21 Primary care physician: PCP NONE Consults: 03/08/19 15:04 Consult to Diamond Expert [CONS] Routine Reason for SW Consult: discharge planning, outpatient psych/counseling resources 03/08/19 20:50 Consult to Psychiatry [CONS] Routine Consulting Provider: Psychiat[facility] Reason consult: Escalante slip on chart Escalante Slip initiated date and time: 03/08/20192049 Discharging clinician: Mavis Eugene Anticipated date of discharge: 03/10/19 - Constitutional Vitals: Temp Pulse Resp BP Pulse Ox 98.1 F 66 14 116/76 97 03/10/19 10:41 03/10/19 10:41 03/10/19 10:41 03/10/19 10:41 03/10/19 10:41 Exam: General: No acute distress, non-flushed appearance HEENT: normocephalic, PERRL, pupils don't appear mydriatic, dry oral mucous membranes Neck: Supple, no lymphadenopathy Cardio: RRR, no murmurs, +S1/S2, no peripheral edema Pulm: CTAB; no wheezing, rhonchi, rales. Normal respiratory effort. Abdomen: soft, nontender, active bowel sounds, non-distended Extremities: No LE edema, no cyanosis, no clubbing Neuro: AAO x 3, no focal deficits, CN II-XII grossly intact, moves all 4 extremities spontaneously, speech clear MSK: Strength 5/5 throughout, no visible deformities Skin: clean, dry, intact, no visible rashes Psych: speech clear, answers questions appropriately, doesn't appear anxious or agitated - Patient Status Functional capacity at discharge: independent ambulation Overall status at discharge: patient is progressing back to baseline - Diet and Activity Activity: increase activity as tolerated Diet: advance to your usual diet
== END 2019-03-10 11:45 | DRG 812 ==
LOC: EMEROOARM 07:12 → SUATTDRO 13:21 → 2ANU 13:21
PROVIDERS: ADMIT Internal Medicine; ATTEND Internal Medicine

== ENCOUNTER 2019-03-10 11:30 | Inpatient (IN) ==
[2019-03-10] MEDS ORDERED: MOM Conc 10 ML UD.LIQ PO PRN (11:39)
[2019-03-10] MEDS ORDERED: traZODone 50 MG TABLET PO PRN (11:39)
[2019-03-10] MEDS ORDERED: hydrOXYzine pamoate 25 MG CAPSULE PO PRN (11:39)
[2019-03-10] MEDS ORDERED: Haloperidol Lactate 5 MG/ML VIAL IM PRN (11:39)
[2019-03-10] MEDS ORDERED: Acetaminophen 325 MG TABLET PO PRN (11:39)
[2019-03-10] MEDS ORDERED: Mag Hydrox/Al Hydrox/Simeth 30 ML UDC PO PRN (11:39)
[2019-03-10] MEDS ORDERED: *HR* LORazepam 2 MG/ML VIAL IM PRN (11:39)
[2019-03-10] MEDS ORDERED: *HR* LORazepam 1 MG TABLET PO PRN (11:39)
--- NOTE | 2019-03-11 09:08 | Psychiatry History & Physical ---
Date of Encounter: 03/11/19 Time of Encounter: 09:03 History of Present Illness Patient Stated Chief Complaint: overdose Medicare Admission Attestation: For traditional Medicare patients the provided hospital inpatient services are reasonable and necessary and in the case of services not specified as inpatient-only under 42 CFR 419.22 (n), that they are appropriately provided as inpatient services in accordance 42 CFR 412.3. For Critical Access Hospital the patient may reasonably be expected to be discharged or transferred to a hospital within 96 hours after admission to the Critical Access Hospital. Admitted From: Home Plans for Post Hospital Care: Home History of Present Illness: Mr. Grier is a 28 year old male who was admitted to the medical floor after overdosing on sleeping pills. Please see psychiatry consult from medical admission for more details. Client has a history of untreated depression but has never attempted suicide before. Suicide attempt triggered by moving out with children. Client states he immediately regretted his actions after taking pills. Called his right away and sought medical attention. Today client denies any further SI, intent, or plan. visited last night and visit went well. Client believes their separation will be temporary. Client is physically healthy although CK levels did increase to over 11,000 while on the medical floor. Will recheck CK level and kidney function prior to discharge. NKDA. No AOD use. Discussed risks and benefits of Zoloft and client is agreeable. Will start this today and link with outpatient services. Client intends to stay with family for a few days after discharge so he will have support. If he tolerates the SSRI and gets set up with community services can likely discharge tomorrow. Past Med Surg Social Fam HX - Past Medical History Medical history: no medical history - Past Psychiatric History Psychiatric history: Reports: no psych history Family psychiatric history: Unknown Family History of Suicide: Unknown - Social History Smoking Status: Never smoker Smokeless Tobacco Status: No Alcohol use: rarely Drug use: none Medications & Allergies No Known Home Drugs 03/08/19 [History] Allergy/AdvReac Type Severity Reaction Status Date / Time No Known Allergies Allergy Verified 03/09/19 10:35 Review of Systems Constitutional: Denies: fever, chills, weakness, weight change Eyes: Denies: eye pain, vision change Ears, Nose, Throat: Denies: ear pain, throat pain, dental pain, hearing loss, congestion Cardiovascular: Denies: chest pain, palpitations, dyspnea on exertion Respiratory: Denies: cough, dyspnea, wheezes Gastrointestinal: Denies: abdominal pain, nausea, vomiting, diarrhea, constipation Genitourinary male: Denies: urgency, dysuria, frequency, genital lesions Musculoskeletal: Denies: joint swelling, joint pain Integumentary: Denies: rash, lesions, pruritus Neurological: Denies: headache, weakness, numbness, memory loss Endocrine: Denies: fatigue, heat or cold intolerance Hematologic/Lymphatic: Denies: easy bruising, lymphadenopathy Allergic/Immunologic: Denies: urticaria, itchy eyes Exam - HEENT Head exam IM: Present: atraumatic Eye exam IM: Present: EOMI, normal appearance, PERRL ENT exam IM: Present: normal exam - Neurological Neurological exam: Present: CN II-XII intact - Respiratory Respiratory exam IM: Present: CTAB - GI/Abdominal GI/Abdominal exam IM: Present: normal bowel sounds, soft. Absent: tenderness - Extremities Extremities exam IM: Present: full ROM - Skin Skin exam IM: Present: dry, warm - Constitutional Vitals: Temp Pulse Resp BP Pulse Ox 98.2 F 95 16 122/87 97 03/11/19 08:53 03/11/19 08:53 03/11/19 08:53 03/11/19 08:53 03/11/19 08:53 General appearance: age & developmentally appropriate, well-groomed, well- nourished - Musculoskeletal Gait: normal Station: relaxed Strength & Tone: normal for patient - Psychiatric Patient Orientation: Yes Person, Yes Time, Yes Place Level of alertness: Alert Behavior: calm, cooperative Psychomotor activity: Normal Eye Contact: Maintains Eye Contact Mood Description: Depressed Affect description: congruent with mood Speech Volume: Normal Speech pattern: normal rate, normal rhythm, normal tone, fluent, spontaneous Language & Vocabulary: consistent with education Thought Process: Linear, Goal Oriented Thought Content: No Suicidal ideation, No Homicidal ideation, No Overt delusions Perceptual Disturbances: No Auditory hallucinations, No Visual hallucinations Attention Span Ability: Capable of Focused Attention Memory Description: Grossly Intact Patient Reliability: Reliable Historian Intelligence Estimate: Average Judgment: Limited Insight: Partial Assessment and Plan (1) Major depress dis, severe Current visit: No Status: Acute Plan: Admit inpatient for safety and stabilization, Close observation, Suicide Precautions per unit protocol, Encourage participation in unit milieu, Group Therapy, Monitor sleep, Monitor appetite Risks, benefits, side effects, alternatives discussed w/pt: Yes Patient agreeable to treatment: Yes Plans for Post Hospital Care: Home Estimated Length of Stay (Days): 3
[2019-03-11 10:26] LABS: BUN/Creatinine Ratio 14 (6-26); Blood Urea Nitrogen 10 mg/dL (6-20); Calcium 9.9 mg/dL (8.6-10.3); Carbon Dioxide 26 mEq/L (23-29); Chloride 102 mEq/L (98-107); Creatine Kinase 2250 Units/L (30-223); Glucose 135 mg/dL (70-105); Osmolality,Calculated 287 (280-300); Sodium 138 mEq/L (136-145); eGFR For Non-African Americans > 60 (> 60)
[2019-03-12 08:48] VITALS: BP 126/82
--- NOTE | 2019-03-12 10:06 | Discharge Summary ---
Date of Encounter: 03/12/19 Time of Encounter: 09:59 Diagnosis - Discharge Diagnosis (1) Major depress dis, severe Status: Acute Medications - Discharge Medications Prescriptions: Sertraline [Zoloft] 50 mg PO DAILY #30 tablet Sertraline [Zoloft] 50 mg PO DAILY #30 tablet 03/12/19 [Rx] Allergy/AdvReac Type Severity Reaction Status Date / Time No Known Allergies Allergy Verified 03/09/19 10:35 Results Procedures and tests throughout hospitalization: Completed Lab Orders Category Date Time Status CK [Creatine Kinase] Routine Lab 03/11/19 09:02 Completed Chem 7 [Basic Metabolic Panel] Routine Lab 03/11/19 09:02 Completed Provider Date of admission: 03/10/19 11:30 Primary care physician: PCP NONE Discharging clinician: Jazzmine Weber Psychiatry Exam - Constitutional Vitals: Temp Pulse Resp BP Pulse Ox 97.7 F 83 18 126/82 98 03/12/19 08:48 03/12/19 08:48 03/12/19 08:48 03/12/19 08:48 03/12/19 08:48 General appearance: age & developmentally appropriate, well-groomed, well- nourished - Musculoskeletal Gait: normal Station: relaxed Strength & Tone: normal for patient - Psychiatric Patient Orientation: Yes Person, Yes Time, Yes Place Level of alertness: Alert Behavior: calm, cooperative Psychomotor activity: Normal Eye Contact: Maintains Eye Contact Mood Description: Euthymic/stable Affect description: congruent with mood Speech Volume: Normal Speech pattern: normal rate, normal rhythm, normal tone, fluent, spontaneous Language & Vocabulary: consistent with education Thought Process: Linear, Goal Oriented Thought Content: No Suicidal ideation, No Homicidal ideation, No Overt delusions Perceptual Disturbances: No Auditory hallucinations, No Visual hallucinations Attention Span Ability: Capable of Focused Attention Memory Description: Grossly Intact Patient Reliability: Reliable Historian Fund of knowledge: Yes abstraction ability, Yes aware of current events Intelligence Estimate: Average Judgment: Fair Insight: Partial Hospital Course Hospital course: Mr. Grier is a 28 year old male who was admitted following an overdose on sleeping pills. Suicide attempt was triggered by moving out with their kids. He was admitted medically and then transferred to once medically stable. Client has consistently said he regretted his decision as soon as he took the pills. When he was not able to make himself throw up he called his and she got him to the hospital. No history of suicide attempts or mental health treatment. However, client did report a history of untreated depressive symptoms so he was started on Zoloft with good clinical effect. On the unit he has been pleasant and cooperative. Attended a group last night. Multiple visitors and visits have gone well. has visited and client states he anticipates they will work things out and stay together. Intends to spend time with his children as soon as he leaves. Will also stay with family members for a few days once discharged so he is not alone. Staff will set him up with outpatient providers so he can follow-up with mental health treatment in the community. Client has denied SI since his attempt. Today he denies SI, intent,or plan. Denies HI/AH/VH. Bright and future oriented. Plans to return to work. Total time spent with client greater than 30 minutes. Patient was educated of his diagnosis and the risks, benefits, and side effects of this treatment and alternative treatment options and was monitored for responsiveness and side effects. Mood, anxiety, sleep, appetite, and interest improved, as did future orientation. Self-harm thoughts subsided, thinking cleared, psychosis resolved, and mood stabilized. Patient was able to attend both individual and group therapy sessions as well as meeting with the psychiatrist daily and urged to discuss any medication or treatment issues or other concerns. The patient was educated primarily by verbal means about their diagnosis and manifestations in their life. The option for treatment including group and individual therapy programming was offered to the patient in the use of medications with all their potential risks, benefits, and side effects were discussed with the patient at length. The patient was given the opportunity to ask questions and was noted to participate in the treatment in the planning process. The patient felt ready and eager to be discharged from the inpatient psychiatric unit to continue on with treatment as an outpatient. The patient agreed that he is safe for this disposition. The patient was considered to be able to participate in informed consent and decision making with respect to medical, legal, and financial issues of the time of discharge. At the time of discharge the patient adamantly denied any concerns for lethality including suicidal or homicidal thoughts ideations or plans and was future oriented toward ongoing mental health care, medical follow-up and sobriety. - Time Spent with Patient Total time spent providing and/or coordinating discharge services: Assessment and Plan - Patient/Caregiver Discharge Instructions Activity: resume usual activities as tolerated Diet: regular diet - Follow up Plan Follow up with: [facility] [Outside] (Message left with Claudette to schedule intake appointment) Functional capacity at discharge: independent ambulation Overall status at discharge: Stable Disposition: Home, Self-Care Quality - Multiple Antipsychotics Patient discharged on 2 or more antipsychotic medications: No Procedures - Procedures Procedures: Medication Management, Crisis Stabilization, Supportive Therapy, Group Therapy
== END 2019-03-12 11:02 | disposition home or self-care (01) | DRG 751 ==
LOC: 1ANU 11:30
PROVIDERS: ADMIT Psychiatry & Neurology Psychiatry; ATTEND Psychiatry & Neurology Psychiatry